=== PATIENT | female | born 1970 | race Two or more races ===

== ENCOUNTER 2021-10-26 16:21 | Emergency (ER) | payer MEDICAID ==
[~2021-10-26] VITALS: Ht 167.6 cm; Wt 63.5 kg
[2021-10-26] MEDS ORDERED: SODIUM CHLORIDE 0.9% 500 ML IV ONE (17:30)
[2021-10-26] MEDS ORDERED: SODIUM CHLORIDE 0.9% 1,000 ML IV ONE (17:30)
[2021-10-26] MEDS ORDERED: methylPREDNISolone SOD SUCC 125 MG/2 ML VL IV ONE (17:30)
[2021-10-26 18:51] LABS: Hematocrit 40.8 % (36.0-46.0); Hemoglobin 13.6 g/dL (12.2-16.2); Mean Corpuscular Hemoglobin 28.4 pg (28.0-32.0); Mean Corpuscular Hgb Conc. 33.4 g/dL (32.0-36.0); Mean Corpuscular Volume 84.9 fL (80.0-100.0); Red Blood Cells 4.81 10^6/uL (4.0-5.20); Red Cell Distribution Width 14.4 % (11.8-14.3); White Blood Cell 12.1 10^3/uL (4.4-10.8)
[2021-10-26 19:04] LABS: Albumin 3.1 g/dL (3.4-5.0); BUN/Creatinine Ratio 17.9; Calcium 8.5 mg/dL (8.5-10.1); Magnesium 2.3 mg/dL (1.6-2.6); Potassium 4.5 mmol/L (3.5-5.1)
[2021-10-26 19:07] LABS: Bilirubin, Total 0.2 mg/dL (0.2-1.0); Total Protein 7.2 g/dL (6.4-8.2)
[2021-10-26 19:12] LABS: Basophils % (manual) 0 (0.0-2.0); Blast Cells 0; Metamyelocytes % 0; Myelocytes % 0; Promyelocytes % 0; Reactive Lymphocytes 0
[2021-10-26 20:39] LABS: Band Neutrophils % (manual) 2; Lymphocytes % (manual) 7 (10.0-50.0); Monocytes % (manual) 7 (0-12)
[2021-10-26 20:40] LABS: Eosinophils % (manual) 2 (0-7)
[2021-10-26 20:51] VITALS: BP 134/81
[2021-10-26] MEDS ORDERED: IPRATROPIUM BROM 0.5 MG/2.5ML INH SOL NEB ONE (21:15)
[2021-10-26] MEDS ORDERED: ALBUTEROL SULF 2.5 MG/0.5ML(0.5%) NEB SOLN NEB ONE (21:15)
[2021-10-26] MEDS ORDERED: PRED20TA2 PO (21:25)
== END 2021-10-26 21:46 | disposition still patient (30) ==
LOC: EDSEX 16:21 → ER 16:21 → EDBD 16:21 → ER 21:46
DX: J45.909 Unspecified asthma, uncomplicated (principal)
CPT/HCPCS: 36415; 71045; 80053; 83735; 85007; 85027; 93005; 94640; 96361; 96374; 99285; J2930; J7030; J7040; J7644

== ENCOUNTER 2021-10-27 22:58 | Inpatient (IN) | payer MEDICAID ==
[~2021-10-27] VITALS: Ht 152.4 cm; Wt 58.2 kg
[~2021-10-27 22:58] MED LIST: PRED20TA2 PO
[2021-10-27] MEDS ORDERED: IPRATROPIUM BROM 0.5 MG/2.5ML INH SOL NEB ONE (23:45)
[2021-10-27] MEDS ORDERED: ALBUTEROL SULF 2.5 MG/0.5ML(0.5%) NEB SOLN NEB ONE (23:45)
[2021-10-28 00:20] LABS: Basophils # (auto) 0 10 ^3/uL (0-0.2); Basophils % (auto) 0.1 % (0.0-2.0); Eosinophils # (auto) 0 10 ^3/uL (0-0.8); Hematocrit 39.6 % (36.0-46.0); Hemoglobin 13.2 g/dL (12.2-16.2); Lymphocytes # (auto) 0.5 10 ^3/uL (0.4-5.4); Lymphocytes % (auto) 3.4 % (10.0-50.0); Mean Corpuscular Hemoglobin 28.6 pg (28.0-32.0); Mean Corpuscular Hgb Conc. 33.2 g/dL (32.0-36.0); Mean Corpuscular Volume 86.1 fL (80.0-100.0); Monocytes # (auto) 0.9 10 ^3/uL (0-1.3); Monocytes % (auto) 5.9 % (0.0-12.0); Neutrophils # (auto) 13.3 10 ^3/uL (1.6-8.6); Neutrophils % (auto) 90.6 % (37.0-80.0); Nucleated Red Blood Cells % 0.1 %; Red Cell Distribution Width 14.9 % (11.8-14.3); White Blood Cell 14.7 10^3/uL (4.4-10.8)
[2021-10-28 00:43] LABS: Albumin 3.1 g/dL (3.4-5.0); BUN/Creatinine Ratio 18.1; Calcium 8.3 mg/dL (8.5-10.1); Potassium 3.6 mmol/L (3.5-5.1)
[2021-10-28 00:46] LABS: Bilirubin, Total 0.2 mg/dL (0.2-1.0); Total Protein 7.2 g/dL (6.4-8.2)
[2021-10-28] MEDS ORDERED: AZITHROMYCIN 500MG/ 250ML 250 ML IV ONE (02:30)
[2021-10-28] MEDS ORDERED: cefTRIAXone 1GM/50ML D5W 50 ML IV ONE (02:30)
[2021-10-28] MEDS ORDERED: SODIUM CHLORIDE 0.9% 1,000 ML IV ONE (04:15)
[2021-10-28] MEDS ORDERED: MAGNESIUM SULFATE 1GM/100ML 100 ML IV ONE (04:45)
[2021-10-28] MEDS ORDERED: ALBUTEROL SULF 2.5 MG/0.5ML(0.5%) NEB SOLN NEB ONE (05:15)
[2021-10-28] MEDS ORDERED: IPRATROPIUM BROM 0.5 MG/2.5ML INH SOL NEB ONE (05:15)
[2021-10-28] MEDS ORDERED: DexAMETHasone SOD PHOS 10MG/1ML VIAL INJ IV ONE (05:30)
[2021-10-28] MEDS ORDERED: DOCUSATE SOD 100 MG CAP PO PRN (05:45)
[2021-10-28] MEDS ORDERED: HYDROcodone-ACET 5/325MG TAB PO PRN (05:45)
[2021-10-28] MEDS ORDERED: ACETAMINOPHEN 325 MG TAB PO PRN (05:45)
[2021-10-28] MEDS ORDERED: ONDANSETRON HCL 4 MG/2 ML VIAL IV PRN (05:45)
[2021-10-28] MEDS ORDERED: MORPHINE SULFATE INJ 2 MG/ml SYRG IV PRN (06:00)
[2021-10-28] MEDS ORDERED: NITROGLYCERIN 0.4 MG SL TAB SL PRN (06:00)
[2021-10-28] MEDS: methylPREDNISolone SOD SUCC 40 MG/ML VL IV SCH ×3 (06:33→21:13)
[2021-10-28 07:07] VITALS: BP 111/43
[2021-10-28 08:17] LABS: Basophils # (auto) 0 10 ^3/uL (0-0.2); Basophils % (auto) 0.1 % (0.0-2.0); Eosinophils # (auto) 0 10 ^3/uL (0-0.8); Hematocrit 38.4 % (36.0-46.0); Hemoglobin 12.5 g/dL (12.2-16.2); Lymphocytes # (auto) 0.5 10 ^3/uL (0.4-5.4); Lymphocytes % (auto) 2.8 % (10.0-50.0); Mean Corpuscular Hemoglobin 28.4 pg (28.0-32.0); Mean Corpuscular Hgb Conc. 32.7 g/dL (32.0-36.0); Monocytes % (auto) 5.5 % (0.0-12.0); Neutrophils # (auto) 16.4 10 ^3/uL (1.6-8.6); Neutrophils % (auto) 91.6 % (37.0-80.0); Red Blood Cells 4.41 10^6/uL (4.0-5.20); Red Cell Distribution Width 14.9 % (11.8-14.3); White Blood Cell 17.9 10^3/uL (4.4-10.8)
[2021-10-28] MEDS: SODIUM CHLORIDE 0.9% 1,000 ML IV SCH ×2 (08:32→21:13)
[2021-10-28 08:38] LABS: Albumin 2.7 g/dL (3.4-5.0); Calcium 7.5 mg/dL (8.5-10.1); Potassium 3.3 mmol/L (3.5-5.1)
[2021-10-28 08:42] LABS: Bilirubin, Total 0.2 mg/dL (0.2-1.0); Total Protein 6.5 g/dL (6.4-8.2)
[2021-10-28] MEDS: FAMOTIDINE (10MG/ML) 2ML VL IV SCH ×2 (09:46→22:34)
[2021-10-28] MEDS: ASCORBIC ACID 500 MG TAB PO SCH ×2 (09:46→22:34)
[2021-10-28] MEDS: MULTIPLE VITAMIN TAB PO SCH (09:46)
[2021-10-28] MEDS: ZINC SULFATE 220mg CAP or TAB PO SCH (09:46)
[2021-10-28] MEDS: ENOXAPARIN SOD 40 MG/0.4 ML SYRINGE SC SCH (09:47)
[2021-10-28] MEDS: ALBUTEROL SULF 2.5 MG/0.5ML(0.5%) NEB SOLN NEB PRN (15:35)
[2021-10-28] MEDS: IPRATROPIUM BROM 0.5 MG/2.5ML INH SOL NEB PRN (15:35)
[2021-10-28 16:59] VITALS: BP 92/44
[2021-10-28 19:49] VITALS: BP 92/44
[2021-10-28] MEDS: cefTRIAXone 1GM/50ML D5W 50 ML IV SCH (21:13)
[2021-10-28 22:00] VITALS: BP 99/51
[2021-10-28] MEDS: AZITHROMYCIN 500MG/ 250ML 250 ML IV SCH (22:33)
[2021-10-29] MEDS: ALBUTEROL SULF 2.5 MG/0.5ML(0.5%) NEB SOLN NEB PRN ×5 (03:06→22:30)
[2021-10-29] MEDS: IPRATROPIUM BROM 0.5 MG/2.5ML INH SOL NEB PRN ×5 (03:07→22:30)
[2021-10-29 05:00] VITALS: BP 111/70
[2021-10-29] MEDS: methylPREDNISolone SOD SUCC 40 MG/ML VL IV SCH ×3 (06:50→21:39)
[2021-10-29 07:35] LABS: Basophils # (auto) 0 10 ^3/uL (0-0.2); Eosinophils # (auto) 0 10 ^3/uL (0-0.8); Hematocrit 38.4 % (36.0-46.0); Hemoglobin 12.5 g/dL (12.2-16.2); Lymphocytes % (auto) 5.2 % (10.0-50.0); Mean Corpuscular Hemoglobin 28.2 pg (28.0-32.0); Mean Corpuscular Hgb Conc. 32.7 g/dL (32.0-36.0); Mean Corpuscular Volume 86.4 fL (80.0-100.0); Monocytes # (auto) 0.6 10 ^3/uL (0-1.3); Monocytes % (auto) 2.8 % (0.0-12.0); Neutrophils # (auto) 18.4 10 ^3/uL (1.6-8.6); Red Blood Cells 4.44 10^6/uL (4.0-5.20); Red Cell Distribution Width 14.4 % (11.8-14.3)
[2021-10-29 07:52] LABS: Albumin 2.4 g/dL (3.4-5.0); Anion Gap 4 (5-15); Blood Urea Nitrogen 18 mg/dL (7-18); Carbon Dioxide 26 mmol/L (21-32); Chloride 109 mmol/L (98-107); Glucose 129 mg/dL (74-106); Potassium 4.2 mmol/L (3.5-5.1); Sodium 139 mmol/L (136-145)
[2021-10-29 07:55] LABS: Alanine Aminotransferase 19 U/L (13-56); Aspartate Aminotransferase 12 U/L (15-37); GFR African American 142 mL/min; GFR Non-African American 117 mL/min
[2021-10-29 07:58] LABS: Alkaline Phosphatase 71 U/L (45-117); Bilirubin, Total < 0.1 mg/dL (0.2-1.0); Total Protein 6.5 g/dL (6.4-8.2)
[2021-10-29] MEDS: ASCORBIC ACID 500 MG TAB PO SCH ×2 (08:40→21:39)
[2021-10-29] MEDS: MULTIPLE VITAMIN TAB PO SCH (08:40)
[2021-10-29] MEDS: FAMOTIDINE (10MG/ML) 2ML VL IV SCH ×2 (08:40→21:39)
[2021-10-29] MEDS: ZINC SULFATE 220mg CAP or TAB PO SCH (08:40)
[2021-10-29] MEDS: ENOXAPARIN SOD 40 MG/0.4 ML SYRINGE SC SCH (08:41)
[2021-10-29 09:00] VITALS: BP 99/54
[2021-10-29 12:30] VITALS: BP 103/62
[2021-10-29] MEDS: SODIUM CHLORIDE 0.9% 1,000 ML IV SCH (15:37)
[2021-10-29 17:00] VITALS: BP 103/65
[2021-10-29] MEDS: cefTRIAXone 1GM/50ML D5W 50 ML IV SCH (21:38)
[2021-10-29 22:00] VITALS: BP 111/72
[2021-10-29] MEDS: AZITHROMYCIN 500MG/ 250ML 250 ML IV SCH (22:55)
[2021-10-30 05:00] VITALS: BP 104/52
[2021-10-30] MEDS: ALBUTEROL SULF 2.5 MG/0.5ML(0.5%) NEB SOLN NEB PRN ×2 (05:06→12:10)
[2021-10-30] MEDS: IPRATROPIUM BROM 0.5 MG/2.5ML INH SOL NEB PRN ×2 (05:06→12:10)
[2021-10-30] MEDS: methylPREDNISolone SOD SUCC 40 MG/ML VL IV SCH (06:16)
[2021-10-30] MEDS ORDERED: ALBU0.084 NEB ×2 (07:57)
[2021-10-30] MEDS ORDERED: IPRIH IN ×2 (07:57)
[2021-10-30] MEDS ORDERED: PRED20TA2 PO ×2 (07:57)
[2021-10-30] MEDS ORDERED: AZIT500T66 PO ×2 (07:57)
[2021-10-30] MEDS: SODIUM CHLORIDE 0.9% 1,000 ML IV SCH (08:42)
[2021-10-30 09:00] VITALS: BP 124/74
[2021-10-30] MEDS: FAMOTIDINE (10MG/ML) 2ML VL IV SCH (09:26)
[2021-10-30] MEDS: MULTIPLE VITAMIN TAB PO SCH (09:27)
[2021-10-30] MEDS: ASCORBIC ACID 500 MG TAB PO SCH (09:27)
[2021-10-30] MEDS: ZINC SULFATE 220mg CAP or TAB PO SCH (09:27)
[2021-10-30] MEDS: ENOXAPARIN SOD 40 MG/0.4 ML SYRINGE SC SCH (09:27)
[2021-10-30 13:00] VITALS: BP 128/73
== END 2021-10-30 14:49 | disposition home or self-care (01) | DRG 720 ==
LOC: EDBD 22:58 → ER 23:00 → TELE 10-28 05:59 → TELE-CENTR 10-28 16:57 → CENTRAL 10-29 00:35
PROVIDERS: ADMIT Nurse Practitioner Family; ATTEND Family Medicine
DX: A41.9 Sepsis, unspecified organism (principal); J96.01 Acute respiratory failure with hypoxia; J45.901 Unspecified asthma with (acute) exacerbation; J18.9 Pneumonia, unspecified organism; N93.9 Abnormal uterine and vaginal bleeding, unspecified; Z20.822 Contact with and (suspected) exposure to COVID-19; E87.8 Other disorders of electrolyte and fluid balance, not elsewhere classified
CPT/HCPCS: 36415; 36600; 71045; 80053; 80320; 82805; 83880; 84484; 84702; 85025; 87040; 87070; 87205; 87804; 94640; 96365; 96367; 99291; G0378; J0696; J3490

== ENCOUNTER 2022-04-13 18:54 | Emergency (ER) | payer MEDICAID ==
[~2022-04-13] VITALS: Ht 157.5 cm; Wt 68.0 kg
[~2022-04-13 18:54] MED LIST changes: +ALBU0.084 NEB; +AZIT500T66 PO; +IPRIH IN
[2022-04-13] MEDS ORDERED: ALBUTEROL SULF 2.5 MG/0.5ML(0.5%) NEB SOLN NEB ONE ×3 (19:45→22:15)
[2022-04-13] MEDS ORDERED: IPRATROPIUM BROM 0.5 MG/2.5ML INH SOL NEB ONE ×2 (19:45→22:15)
[2022-04-13] MEDS ORDERED: DexAMETHasone SOD PHOS 10MG/1ML VIAL INJ IM ONE (20:00)
[2022-04-13] MEDS ORDERED: DexAMETHasone SOD PHOS 10MG/1ML VIAL INJ IV ONE (20:45)
[2022-04-13] MEDS ORDERED: MAGNESIUM SULFATE 1GM/100ML 100 ML IV ONE (20:45)
[2022-04-13] MEDS ORDERED: ALBU108A5 IN (21:29)
[2022-04-13 23:02] LABS: Basophils # (auto) 0 10 ^3/uL (0-0.2); Eosinophils # (auto) 0.5 10 ^3/uL (0-0.8); Hemoglobin 11.4 g/dL (12.2-16.2)
[2022-04-13 23:04] LABS: Basophils % (auto) 0.3 % (0.0-2.0); Eosinophils % (auto) 5.5 % (0.0-7.0); Hematocrit 35.9 % (36.0-46.0); Lymphocytes % (auto) 11.9 % (10.0-50.0); Mean Corpuscular Hemoglobin 24.9 pg (28.0-32.0); Mean Corpuscular Hgb Conc. 31.8 g/dL (32.0-36.0); Mean Corpuscular Volume 78.4 fL (80.0-100.0); Monocytes # (auto) 0.3 10 ^3/uL (0-1.3); Monocytes % (auto) 3.3 % (0.0-12.0); Neutrophils # (auto) 6.9 10 ^3/uL (1.6-8.6); Nucleated Red Blood Cells % 0.1 %; Red Blood Cells 4.57 10^6/uL (4.0-5.20); White Blood Cell 8.7 10^3/uL (4.4-10.8)
[2022-04-13 23:20] LABS: Albumin 3.2 g/dL (3.4-5.0); Calcium 8.5 mg/dL (8.5-10.1); Potassium 3.8 mmol/L (3.5-5.1)
[2022-04-13 23:23] LABS: Bilirubin, Total 0.1 mg/dL (0.2-1.0); Total Protein 6.5 g/dL (6.4-8.2)
[2022-04-14] MEDS ORDERED: AZIT250T9 PO (01:59)
[2022-04-14] MEDS ORDERED: PRED20TA2 PO (01:59)
[2022-04-14 02:00] VITALS: BP 126/64
== END 2022-04-14 02:53 | disposition home or self-care (01) ==
LOC: EDBD 18:54 → ER 18:54 → EDUNIT# 18:54 → ER 04-14 02:37
DX: J45.909 Unspecified asthma, uncomplicated (principal); Z20.822 Contact with and (suspected) exposure to COVID-19
CPT/HCPCS: 36415; 71045; 80053; 84484; 85025; 87426; 87804; 94640; 96365; 96375; 99285; J1100; J3475; J7644

== ENCOUNTER 2022-12-11 04:51 | Emergency (ER) | payer MEDICAID ==
[~2022-12-11] VITALS: Ht 154.9 cm; Wt 59.1 kg
[~2022-12-11 04:51] MED LIST changes: +ALBU108A5 IN; +AZIT-43 PO
[2022-12-11] MEDS ORDERED: IPRATROPIUM BROM 0.5 MG/2.5ML INH SOL NEB ONE (05:00)
[2022-12-11] MEDS ORDERED: ALBUTEROL SULF 2.5 MG/0.5ML(0.5%) NEB SOLN NEB ONE (05:00)
[2022-12-11] MEDS ORDERED: DexAMETHasone SOD PHOS 10MG/1ML VIAL INJ IM ONE (05:15)
[2022-12-11] MEDS ORDERED: AZIT1POW PO (06:26)
[2022-12-11] MEDS ORDERED: METH4PAK PO (06:26)
[2022-12-11 06:36] LABS: Basophils # (auto) 0 10 ^3/uL (0-0.2); Lymphocytes # (auto) 1.1 10 ^3/uL (0.4-5.4); Nucleated Red Blood Cells % 0.1 %; Red Cell Distribution Width 19.7 % (11.8-14.3)
[2022-12-11 06:40] LABS: Basophils % (auto) 0.5 % (0.0-2.0); Eosinophils # (auto) 0.5 10 ^3/uL (0-0.8); Eosinophils % (auto) 7.2 % (0.0-7.0); Hematocrit 32.2 % (36.0-46.0); Hemoglobin 10.1 g/dL (12.2-16.2); Lymphocytes % (auto) 17.4 % (10.0-50.0); Mean Corpuscular Hemoglobin 21.8 pg (28.0-32.0); Mean Corpuscular Hgb Conc. 31.3 g/dL (32.0-36.0); Mean Corpuscular Volume 69.9 fL (80.0-100.0); Monocytes # (auto) 0.3 10 ^3/uL (0-1.3); Monocytes % (auto) 5.5 % (0.0-12.0); Neutrophils # (auto) 4.4 10 ^3/uL (1.6-8.6); Neutrophils % (auto) 69.4 % (37.0-80.0); Red Blood Cells 4.61 10^6/uL (4.0-5.20); White Blood Cell 6.4 10^3/uL (4.4-10.8)
[2022-12-11 06:51] LABS: INR 0.98 (0.9-1.15); Partial Thromboplastin Time 29.5 SEC (24.5-34.5)
[2022-12-11 06:55] LABS: Albumin 3.5 g/dL (3.4-5.0); Calcium 8.1 mg/dL (8.5-10.1); Magnesium 2.5 mg/dL (1.6-2.6); Potassium 3.6 mmol/L (3.5-5.1)
[2022-12-11 06:57] LABS: BUN/Creatinine Ratio 36.5 (10.0-20.0)
[2022-12-11 07:00] LABS: Bilirubin, Total 0.2 mg/dL (0.2-1.0); Total Protein 6.7 g/dL (6.4-8.2)
[2022-12-11 08:18] VITALS: BP 145/80
== END 2022-12-11 08:25 | disposition home or self-care (01) ==
LOC: ER 04:51
DX: J45.22 Mild intermittent asthma with status asthmaticus (principal); F12.90 Cannabis use, unspecified, uncomplicated; Z98.890 Other specified postprocedural states
CPT/HCPCS: 36415; 71045; 80053; 83735; 84484; 85025; 85610; 85730; 93005; 94640; 96372; 99285; J1100; J7644

== ENCOUNTER 2023-06-21 05:32 | Emergency (ER) | payer MEDICAID ==
[~2023-06-21] VITALS: Ht 157.5 cm; Wt 60.0 kg
[~2023-06-21 05:32] MED LIST changes: +AZIT1POW PO; +METH4PAK PO
[2023-06-21] MEDS ORDERED: IPRATROPIUM BROM 0.5 MG/2.5ML INH SOL HHN ONE (06:30)
[2023-06-21] MEDS ORDERED: ALBUTEROL SULF 2.5 MG/0.5ML(0.5%) NEB SOLN HHN ONE (06:30)
[2023-06-21 07:41] VITALS: TEMP 98.1
[2023-06-21] MEDS ORDERED: SODIUM CHLORIDE 0.9% 1,000 ML IV ONE (08:00)
[2023-06-21 09:00] LABS: COVID19 ANTIGEN SOFIA FIA NEGATIVE (NEGATIVE); Rapid Influenza A Negative (Negative); Rapid Influenza B Negative (Negative)
[2023-06-21 09:30] VITALS: PULSE 97; RESP 19; O2SAT 97
[2023-06-21] MEDS ORDERED: AZIT1POW PO (09:33)
[2023-06-21] MEDS ORDERED: METH4PAK PO (09:33)
[2023-06-21 09:43] VITALS: BP 104/71; PULSE 97; RESP 19; O2SAT 96
== END 2023-06-21 10:05 | disposition home or self-care (01) ==
LOC: EDBD 05:32 → ER 05:32
DX: J20.9 Acute bronchitis, unspecified (principal); J45.901 Unspecified asthma with (acute) exacerbation; F12.10 Cannabis abuse, uncomplicated; Z20.822 Contact with and (suspected) exposure to COVID-19
CPT/HCPCS: 36415; 71046; 87426; 87804; 94640; 96360; 96361; 99285; J7030; J7644